=== PATIENT | female | born 1950 | race Caucasian/White ===

== ENCOUNTER 2022-01-25 18:37 | Emergency (ER) | payer OTHER ==
[~2022-01-25 18:37] MED LIST: AMBIEN10 MG PO; ASPIR-LOW81 MG PO; ATIVAN0.5 MG PO; CYCLOBENZAPRINE5 MG PO; FLAGYL500 MG PO; HYDROCODON-ACE1 EAC2 PO; IMDUR ER TAB 3030 MG PO; LISINOPRIL10 MG PO; LORTAB 5-325 M1 EACH PO; MACROBID 100 M100 MG PO; NITROGLYCERIN0.4 MG SL; PREDNISONE20 MG PO; PRILOSEC OTC20 MG PO; PRINIVIL10 MG PO
[2022-01-25 19:27] LABS: HEMOGLOBIN 12.7 gm/dl (12.3-15.3); RED BLOOD COUNT 4.34 M/UL (4.00-5.10); WHITE BLOOD COUNT 8.3 K/UL (4.5-11.0)
[2022-01-25 20:12] LABS: BUN/CREATININE RATIO 15 (0-10)
== END 2022-01-25 23:28 | disposition home or self-care (01) ==
LOC: ER1 18:37
PROVIDERS: Student in an Organized Health Care Education/Training Program
DX: U07.1 COVID-19 (principal); E87.1 Hypo-osmolality and hyponatremia; I48.91 Unspecified atrial fibrillation; Z90.49 Acquired absence of other specified parts of digestive tract; Z90.710 Acquired absence of both cervix and uterus; Z79.01 Long term (current) use of anticoagulants
CPT/HCPCS: 71045; 80053; 82550; 82553; 83605; 84484; 85025; 93005; 99285